=== PATIENT | female | born 1955 | race African-American/Black ===

== ENCOUNTER 2019-07-22 12:11 | Emergency (ER) | payer MEDICAID ==
[~2019-07-22] VITALS: Ht 154.9 cm; Wt 63.5 kg
--- NOTE | 2019-07-22 12:11 | NUR ---
Patient transferred to bed 4 via wheelchair by tech. RN evaluating patient at bedside.
--- NOTE | 2019-07-22 12:19 | NUR ---
63 Y/O F C/C NUMBNESS/PARESTHESIA BILATERAL WRIST/FEET X 2 DAYS. PT DENIES PAIN/DISCOMFORT. WHEELCHAIR ASSISTANCE TO BEDSIDE DUE TO PARESTHESIA AND NUMBNESS ON BILATERAL FEET. NEURO WNL. PUPILS PERRLA. PLANTAR/DORSIFLEXION WNL. CN II,III,IV,V,,VII,XII WNL. NO ASYMMETRY NOTED ON FACE, UPPER/LOWER EXTREMITIES. ALLERGIES LATEX. NO HX. NO RX. NO NVD. SIDE RAIL X1.
[2019-07-22 12:22] VITALS: BP 163/66
--- NOTE | 2019-07-22 12:45 | NUR ---
Patient ambulating to restroom with steady gait.
--- NOTE | 2019-07-22 12:53 | NUR ---
Patient being evaluated by Dr. Yee at bedside.
[2019-07-22 13:10] VITALS: BP 163/66
--- NOTE | 2019-07-22 13:11 | NUR ---
Patient discharged with v/s stable. Written and verbal after care instructions given and explained. Patient alert, oriented and verbalized understanding of instructions. Ambulatory with steady gait. All questions addressed prior to discharge. ID band removed. Patient advised to follow up with PMD. Rx of ATARAX 25MG given. Patient educated on indication of medication including possible reaction and side effects. Opportunity to ask questions provided and answered.
== END 2019-07-22 13:11 | disposition home or self-care (01) ==
LOC: MED 12:11
DX: F41.9 Anxiety disorder, unspecified (principal); F17.210 Nicotine dependence, cigarettes, uncomplicated; Z90.49 Acquired absence of other specified parts of digestive tract; Z91.040 Latex allergy status
CPT/HCPCS: 81002; 81025; 99283

== ENCOUNTER 2019-08-25 07:32 | Emergency (ER) | payer MEDICAID ==
[~2019-08-25] VITALS: Ht 167.6 cm; Wt 59.0 kg
[2019-08-25 07:34] VITALS: BP 137/85
--- NOTE | 2019-08-25 07:41 | NUR ---
PT AMBULATED TO ER BED 11
--- NOTE | 2019-08-25 07:46 | NUR ---
63 Y/O FEMALE FROM HOME C/O LT RIB PAIN SINCE YESTERDAY MORNING. PT STATES SHE THOUGHT IT WAS GAS PAIN AND TOOK TUMS AND MAGNESIUM WITH NO RELIEF. 3 EPISODES OF DIARRHEA. STATES 10/10 CONSTANT SHARP PAIN. TOOK TYLENOL WITH CODEINE YESTERDAY WITH NO PAIN RELIEF. RR EVEN AND UNLABORED, AWAKE AND ALERT. VSS MEDHX: ARTHRITIS ALLERGIES: LATEX
--- NOTE | 2019-08-25 08:02 | NUR ---
DR PENA AT BEDSIDE EXAMINING PT
[2019-08-25] MEDS ORDERED: KETOROLAC 15 MG/ML VIAL IVP ONE (08:10)
--- NOTE | 2019-08-25 08:23 | NUR ---
PT AMBULATED TO RESTROOM FOR COLLECTION OF URINE
[2019-08-25 08:27] LABS: BASOPHILS # (AUTO) 0.1 K/uL (0.00-0.22); EOSINOPHILS # (AUTO) 0.3 K/uL (0-0.4); EOSINOPHILS % (AUTO) 4.9 % (0.0-4.0); HEMATOCRIT 39.8 % (36-48); HEMOGLOBIN 13.2 g/dL (12.0-16.0); LYMPHOCYTES # (AUTO) 2.3 K/uL (2.5-16.5); MEAN CORPUSCULAR HEMOGLOBIN 30 pg (27-31); MEAN CORPUSCULAR HGB CONC 33 g/dL (33-37); MONOCYTES # (AUTO) 0.8 K/uL (0.8-1.0); MONOCYTES % (AUTO) 11.4 % (1.7-9.3); NEUTROPHILS # (AUTO) 3.3 K/uL (1.8-7.7); NEUTROPHILS % (AUTO) 48.7 % (42.2-75.2); PLATELET COUNT (AUTO) 186 K/uL (140-450); RED BLOOD CELL COUNT(AUTO) 4.42 MIL/uL (4.20-5.40); RED CELL DISTRIBUTION WIDTH 12.3 % (11.6-13.7); WHITE BLOOD COUNT (AUTO) 6.8 K/uL (4.8-10.8)
[2019-08-25 08:52] LABS: ALBUMIN 3.3 g/dL (3.4-5.0); ANION GAP 11.9 (8-16); CARBON DIOXIDE 25.8 mmol/L (21-32); CREATININE 0.8 mg/dL (0.6-1.3); POTASSIUM 3.7 mmol/L (3.5-5.1); TOTAL BILIRUBIN 0.5 mg/dL (0.0-1.0)
--- NOTE | 2019-08-25 09:18 | NUR ---
Ultrasound at bedside
--- NOTE | 2019-08-25 09:36 | NUR ---
PT RESTING IN BED, AWAKE AND ALERT. RR EVEN AND UNLABORED, POSITIONED FOR COMFORT. VSS
--- NOTE | 2019-08-25 10:03 | NUR ---
DR PENA AT BEDSIDE RE-EVALUATING PT
[2019-08-25 10:16] LABS: APPEARANCE,URINE CLEAR (CLEAR); BILIRUBIN,URINE NEGATIVE (NEGATIVE); BLOOD, URINE NEGATIVE (NEGATIVE); COLOR,URINE YELLOW (YELLOW); LEUKOCYTE ESTERASE ,URINE NEGATIVE (NEGATIVE); NITRITE, URINE NEGATIVE (NEGATIVE); UGLUCOSE NEGATIVE (NEGATIVE)
[2019-08-25 10:20] VITALS: BP 129/81
--- NOTE | 2019-08-25 10:21 | NUR ---
Patient discharged with v/s stable. Written and verbal after care instructions given and explained. Patient alert, oriented and verbalized understanding of instructions. Ambulatory with steady gait. All questions addressed prior to discharge. ID band removed. Patient advised to follow up with PMD. Rx of IBUPROFEN 600MG AND TYLENOL EXTRA STRENGTH 500MG given. Patient educated on indication of medication including possible reaction and side effects. Opportunity to ask questions provided and answered.
== END 2019-08-25 10:21 | disposition home or self-care (01) ==
LOC: MED 07:32
DX: R10.9 Unspecified abdominal pain (principal); R03.0 Elevated blood-pressure reading, without diagnosis of hypertension; R74.0 Nonspecific elevation of levels of transaminase and lactic acid dehydrogenase [LDH]; Z90.710 Acquired absence of both cervix and uterus
CPT/HCPCS: 36415; 76705; 80053; 81003; 83690; 84484; 85025; 93005; 96374; 99284; J1885; Q0092